=== PATIENT | female | born 1955 | race Caucasian/White ===

== ENCOUNTER 2022-03-13 09:50 | Inpatient (IN) | payer BC, MEDICARE, SELFPAY ==
[2022-03-13 09:54] VITALS: BP 123/72; PULSE 74; RESP 16; TEMP 36.3; O2SAT 97; BMI 18.6
--- NOTE | 2022-03-13 10:07 | CT_ITS ---
STUDY: CT BRAIN WITHOUT CONTRAST REASON FOR EXAM: Female, 66 years old. Confusion RADIATION DOSAGE (If Supplied By Facility): CTDIvol = ( 44.99 ) mGy, DLP = ( 745.49 ) mGycm TECHNIQUE: Transaxial CT imaging of the brain was performed without administration of intravenous contrast material. Individualized dose optimization techniques were used for this CT. COMPARISON: No relevant priors. FINDINGS: There is a right-sided ventriculoperitoneal shunt system with a right-sided fabio hole. There is also an adjacent fabio hole which appears to been abandoned.. Normal calvarium. There is moderate cerebral atrophy with widening of the extra-axial spaces and ventricular dilatation. There are areas of decreased attenuation within the white matter tracts of the supratentorial brain, consistent with microvascular disease changes. There is a focus of low attenuation within the left anterior limb of the internal capsule compatible with prior ischemic change. Normal brainstem. Normal cerebellum. There is no intracranial hemorrhage. There are no findings of an acute ischemic infarction. Normal visualized paranasal sinuses. CT/Brain/Head without Contrast IMPRESSION: Atrophy no visualized acute hemorrhage infarct or edema. Right side ventriculoperitoneal shunt tip of the third ventricle. Abandoned right frontal anteriorly located fabio hole. Electronically Signed: Anne Robledo MD at 10:42 EDT ,
[2022-03-13 10:21] LABS: Absolute Lymphocyte Count 1.95 X10^3/uL (0.83-4.51); Absolute Neutrophil Count 3.1 X10^3/uL (2.0-7.7); Basophil# 0.03 X10^3/uL; Basophil% 0.5 % (0-1); Eosinophil# 0.07 X10^3/uL; Eosinophils% 1.3 % (0-5); Hematocrit 45.4 % (37-47); Hemoglobin 15.4 g/dL (12.0-15.0); Lymphocyte # 1.95 X10^3/ul (0.83-4.51); Lymphocyte % 35.1 % (19-41); Mean Corp Hgb Conc 33.9 g/dL (32-36); Mean Corpuscular Hgb 34.1 pg (27.0-32.0); Mean Corpuscular Volume 100.4 fL (81-99); Mean Platelet Vol. 8.5 fl (6.2-12.0); Monocyte# 0.39 X10^3/uL; NRBC Flagged by Analyzer 0 % (0-5); Neutrophil # 3.11 X10^3/uL (2.7-7.7); Neutrophil % 55.9 % (47-70); Platelet Count 350 K/mm3 (150-450); RBC Distribution Width CV 11.7 % (11.6-14.6); RBC Distribution Width SD 43.4 fl (35.1-43.9); Red Blood Count 4.52 M/mm3 (4.2-5.4); White Blood Count 5.6 K/mm3 (4.4-11.0)
[2022-03-13 10:27] LABS: Mucous, Urine 0 SEEN /hpf (<or=2+); Red Blood Cells-Urine 0 SEEN /hpf (0-5)
--- NOTE | 2022-03-13 10:27 | EX.ED.DYSGE1 ---
HPI History of Present Illness Chief Complaint: Mental Health Informant: patient, EMS and police/protection consultant Narrative Narrative: Police were reportedly called this morning to go to a wellness check on patient and . Patient was found lying in bed next to her . She has dementia and reported was not able to comprehend what was going on. They believe she had gone without food or her medications for at least 1 day. She did not remember her family's phone number to contact them. [facility] Medical History Dementia History of CVA (cerebrovascular accident) HLD (hyperlipidemia) HTN (hypertension) Home Medications alendronate 70 mg PO DAILY 03/13/22 [History Last Taken Unknown] atorvastatin 40 mg PO DAILY 03/13/22 [History Last Taken Unknown] nifedipine 30 mg PO DAILY 03/13/22 [History Last Taken Unknown] nifedipine 60 mg PO DAILY 03/13/22 [History Last Taken Unknown] quetiapine 25 mg PO QHS 03/13/22 [History Last Taken Unknown] Allergy/AdvReac Type Severity Reaction Status Date / Time No Known Allergies Allergy Verified 03/13/22 09:51 Social History Smoking Status: Never smoker ROS ROS ED Constitutional Constitutional ED: Denies chills or fever(s) Eyes Eyes: Denies change in vision ENT ENT ED: Denies sore throat Cardiovascular Cardiovascular: Denies chest pain Respiratory/Chest Respiratory/Chest: Denies cough or dyspnea Gastrointestinal Gastrointestinal: Denies abdominal pain, nausea or vomiting Genitourinary Genitourinary ED: Denies dysuria Musculoskeletal Musculoskeletal: Denies back pain Integumentary Denies rash Neurologic Neurologic: Denies headache(s) Allergic/Immunologic Allergic/Immunologic ED: Denies urticaria EXAM Physical Exam Const Vital Signs: 03/13/22 09:54 Temperature 97.3 F L Temperature Source Temporal Pulse Rate 74 Respiratory Rate 16 Blood Pressure 123/72 H Blood Pressure Mean 89 Pulse Ox 97 Oxygen Delivery Method Room Air Positive well nourished and well developed General Appearance ED: well developed HEENT Reports moist mucous membranes Eyes PERRL and EOMs intact bilaterally Neck supple Chest Wall inspection of chest normal and palpation of chest normal Resp normal respiratory effort and clear to auscultation bilaterally Cardio regular rate and regular rhythm GI non-tender Palpation: soft Extremity normal to inspection Neuro no sensory deficits noted Sensorium / Orientation: alert Motor Exam: strength 5/5 throughout Skin no rashes or lesions noted MDM MDM MDM Narrative Medical decision making narrative: Lab work and urinalysis obtained along with head CT. I was able to determine that her home medications are prescribed by a nurse practitioner for [facility]. I spoke with Dr. Victor and attempts to obtain more history. Patient had a cerebral hemorrhage in left basal ganglia in November and in [place]. She had surgery there with a NUTRITION PROGRAM INSTRUCTOR shunt placed. It appears from the notes that she was back to the point of doing laundry and doing some daily activities, but was not able to cook for herself. Lab Data Attestation: I reviewed the patient's lab results. Labs: Laboratory Results - last 24 hr 03/13/22 03/13/22 03/13/22 09:58 09:58 09:58 WBC 5.6 RBC 4.52 Hgb 15.4 H Hct 45.4 MCV 100.4 H MCH 34.1 H MCHC 33.9 RDW Std Deviation 43.4 RDW Coeff of John 11.7 Plt Count 350 MPV 8.5 Immature Gran % (Auto) 0.200 Neut % (Auto) 55.9 Lymph % (Auto) 35.1 Chambers % (Auto) 7.0 Eos % (Auto) 1.3 Baso % (Auto) 0.5 Absolute Neuts (auto) 3.1 Absolute Lymphs (auto) 1.95 Nucleated RBC % 0 Sodium 139 Potassium 4.1 Chloride 105 Carbon Dioxide 29.0 Anion Gap 5 BUN 10 Creatinine 0.84 Estim Creat Clear Calc 56.71 Est GFR (MDRD) Af Amer 88 Est GFR (MDRD) Non-Af 72 BUN/Creatinine Ratio 11.9 Glucose 109 H Calcium 9.6 Urine Color Urine Clarity Urine pH Ur Specific [place] Urine Protein Urine Glucose (UA) Urine Ketones Urine Occult Blood Urine Nitrite Urine Bilirubin Urine Urobilinogen Ur Leukocyte Esterase Urine RBC Urine WBC Ur Squamous Epith Cells Urine Bacteria Urine Mucus Urine Opiates Screen Urine Methadone Screen Ur Barbiturates Screen Ur Phencyclidine Scrn Ur Amphetamines Screen MDMA (Ecstasy) Screen U Benzodiazepines Scrn Urine Cocaine Screen U Cannabinoids Screen Ur Drug Screen Comment Ethyl Alcohol < 3.0 03/13/22 03/13/22 10:24 10:24 WBC RBC Hgb Hct MCV MCH MCHC RDW Std Deviation RDW Coeff of John Plt Count MPV Immature Gran % (Auto) Neut % (Auto) Lymph % (Auto) Chambers % (Auto) Eos % (Auto) Baso % (Auto) Absolute Neuts (auto) Absolute Lymphs (auto) Nucleated RBC % Sodium Potassium Chloride Carbon Dioxide Anion Gap BUN Creatinine Estim Creat Clear Calc Est GFR (MDRD) Af Amer Est GFR (MDRD) Non-Af BUN/Creatinine Ratio Glucose Calcium Urine Color Yellow Urine Clarity Cloudy Urine pH 6.0 Ur Specific [place] 1.020 Urine Protein 30 H Urine Glucose (UA) Normal Urine Ketones 5 H Urine Occult Blood 50 H Urine Nitrite Positive H Urine Bilirubin Negative Urine Urobilinogen 1 H Ur Leukocyte Esterase 500 H Urine RBC 0 SEEN Urine WBC 5-10 SEEN Ur Squamous Epith Cells 5-10 SEEN Urine Bacteria 3+ Urine Mucus 0 SEEN Urine Opiates Screen NEGATIVE Urine Methadone Screen NEGATIVE Ur Barbiturates Screen NEGATIVE Ur Phencyclidine Scrn NEGATIVE Ur Amphetamines Screen NEGATIVE MDMA (Ecstasy) Screen NEGATIVE U Benzodiazepines Scrn NEGATIVE Urine Cocaine Screen NEGATIVE U Cannabinoids Screen NEGATIVE Ur Drug Screen Comment Ethyl Alcohol Radiography Diagnostic Testing: Clinical Impression(s) from Imaging Studies Brain CT 03/13/22 10:07 IMPRESSION: Atrophy no visualized acute hemorrhage infarct or edema. Right side ventriculoperitoneal shunt tip of the third ventricle. Abandoned right frontal anteriorly located fabio hole. Electronically Signed: Anne Robledo MD at 10:42 EDT , Treatment and Re-Evaluation Narrative: Laboratory evaluation is unremarkable. Urinalysis does reveal positive nitrites with 3+ bacteria, however 5-10 epithelial cells are noted. Urine is sent for culture and she is given a dose of Keflex here. Head CT reveals chronic changes with her NUTRITION PROGRAM INSTRUCTOR shunt in place. I spoke with a close family friend who is bringing the patient's person medications to the ER. They state that the patient's children are on their way here from out of state will not be here until tomorrow. She clearly is not able to care for herself and will need placement. I will speak with the hospitalist. Discharge Plan Triage Chief Complaint: Mental Health ED Provider: Patricia Morris Dx/Rx/DC Orders Clinical Impression: Dementia Prescriptions: No Action nifedipine 30 mg tablet extended release 24hr 30 mg PO DAILY RF: 0 quetiapine 25 mg tablet 25 mg PO QHS RF: 0 atorvastatin 40 mg tablet 40 mg PO DAILY RF: 0 alendronate 70 mg tablet 70 mg PO DAILY RF: 0 nifedipine 60 mg tablet extended release 60 mg PO DAILY RF: 0 Primary Care Provider: Lydia Key Referrals: Lydia Key MD [Primary Care Provider] - Disposition Disposition: Acute Care Hospital [facility]
[2022-03-13 10:28] LABS: Color, Urine Yellow (Yellow); Glucose, Dipstick Normal (Normal); Ketone-Dipstick 5 mg/dl (Negative); Leukocyte Esterase-Dipstick 500 /ul (Negative); Nitrite-Dipstick Positive (Negative); Occult Blood-Urine 50 /ul (Negative); Protein-Dipstick 30 mg/dl (Negative); Urine Bilirubin Dipstick Negative (Negative); Urine Clarity Cloudy (Clear); Urine Urobilinogen 1 mg/dl (Normal)
[2022-03-13 10:34] LABS: Bacteria 3+ /hpf (None Seen); Squamous Epithelial Cells - UA 5-10 SEEN /hpf (5-10); White Blood Cells 5-10 SEEN /hpf (0-5)
[2022-03-13 10:46] LABS: Anion Gap 5 (5-15); BUN 10 mg/dL (7-18); BUN/Creat Ratio 11.9 RATIO (10-20); Calcium,Total 9.6 mg/dL (8.5-10.1); Chloride 105 mmol/L (98-107); Creatinine, Serum 0.84 mg/dL (0.55-1.02); EST Glomerular Filtration Rate 72 mL/min (>60); Est Glom Filt Rate - Afr Amer 88 mL/min (>60); Estimated Creatinine Clearance 56.71 ml/min; Glucose 109 mg/dL (74-106); Potassium 4.1 mmol/L (3.5-5.1); Sodium Level 139 mmol/L (136-145)
[2022-03-13 10:51] VITALS: RESP 16
[2022-03-13] MEDS: Cephalexin 250 MG Capsule 500 MG PO (10:55)
[2022-03-13 10:57] LABS: Amphetamine Urine VISTA NEGATIVE (<1000 ng/mL); Barbiturate Urine VISTA NEGATIVE (< 200 ng/mL); Benzodiazepine Urine VISTA NEGATIVE (< 200 ng/mL); Cocaine Urine VISTA NEGATIVE (< 300 ng/mL); Ecstacy Urine VISTA NEGATIVE (< 500 ng/mL); Methadone Urine VISTA NEGATIVE (< 300 ng/mL); PCP Urine VISTA NEGATIVE (< 25 ng/mL); THC Urine VISTA NEGATIVE (< 50 ng/mL); Vista UDS pH Range 6
[2022-03-13 11:06] LABS: Alcohol, Blood (Medical)-Serum < 3.0 mg/dL
--- NOTE | 2022-03-13 11:45 | HP.PCM.HOS_ITS ---
HPI - General General Date of Admission: 03/13/22 Date of Service: 03/13/22 Chief Complaint: Altered mental status HPI Narrative NIEVES BLISS, is a 66 F with underlying history of dementia who was found sleeping next to her bed had spent following a wellness check. Patient had apparently been did approximately for 72 hours. Patient was not aware that the was . She was brought to the emergency room subsequently. Work-up did reveal presence of acute cystitis. Started on antibiotics admitted to regular nursing floor with consultation placed to case management [facility] Medical History Dementia History of CVA (cerebrovascular accident) HLD (hyperlipidemia) HTN (hypertension) Home Medications alendronate 70 mg PO DAILY 03/13/22 [History Last Taken Unknown] atorvastatin 40 mg PO DAILY 03/13/22 [History Last Taken Unknown] nifedipine 30 mg PO DAILY 03/13/22 [History Last Taken Unknown] nifedipine 60 mg PO DAILY 03/13/22 [History Last Taken Unknown] quetiapine 25 mg PO QHS 03/13/22 [History Last Taken Unknown] Allergy/AdvReac Type Severity Reaction Status Date / Time No Known Allergies Allergy Verified 03/13/22 09:51 Family History unable to obtain unable to obtain (Advanced dementia) Social History Smoking Status: Never smoker ROS Review of Systems ROS Unobtainable: due to mental condition Vital Signs Vital Signs Vital Signs: 03/13/22 09:54 Temperature 97.3 F L Temperature Source Temporal Pulse Rate 74 Respiratory Rate 16 Blood Pressure 123/72 H Blood Pressure Mean 89 Pulse Ox 97 Oxygen Delivery Method Room Air Weight Weight: 53.8 kg Body Mass Index (BMI) 18.6 Physical Exam Narrative GENERAL: Patient in no apparent distress HEENT: Atraumatic; EYES; Anicteric, Normal Conjunctiva NECK; supple, normal thyroid, RESPIRATORY: Diminished to auscultation CARDIOVASCULAR: Regular S1 S2, GI: soft, normoactive bowel sounds, : No Renal angle tenderness; EXTREMITIES: No edema, no clubbing, MUSCULOSKELETAL: no muscle wasting NEURO: Awake; no lateralizing signs. SKIN: No Rash PSYCH; Flat affect Results Lab / Micro Data Result Diagrams: 03/13/22 09:58 03/13/22 09:58 Labs: Laboratory Results - last 24 hr 03/13/22 09:58: WBC 5.6, RBC 4.52, Hgb 15.4 H, Hct 45.4, MCV 100.4 H, MCH 34.1 H , MCHC 33.9, RDW Std Deviation 43.4, RDW Coeff of John 11.7, Plt Count 350, MPV 8.5, Immature Gran % (Auto) 0.200, Neut % (Auto) 55.9, Lymph % (Auto) 35.1, Bates % (Auto) 7.0, Eos % (Auto) 1.3, Baso % (Auto) 0.5, Absolute Neuts (auto) 3.1, Absolute Lymphs (auto) 1.95, Nucleated RBC % 0 03/13/22 09:58: Sodium 139, Potassium 4.1, Chloride 105, Carbon Dioxide 29.0, Anion Gap 5, BUN 10, Creatinine 0.84, Estim Creat Clear Calc 56.71, Est GFR (MDRD) Af Amer 88, Est GFR (MDRD) Non-Af 72, BUN/Creatinine Ratio 11.9, Glucose 109 H, Calcium 9.6 03/13/22 09:58: Ethyl Alcohol < 3.0 03/13/22 10:24: Urine Color Yellow, Urine Clarity Cloudy, Urine pH 6.0, Ur Specific [place] 1.020, Urine Protein 30 H, Urine Glucose (UA) Normal, Urine Ketones 5 H, Urine Occult Blood 50 H, Urine Nitrite Positive H, Urine Bilirubin Negative, Urine Urobilinogen 1 H, Ur Leukocyte Esterase 500 H, Urine RBC 0 SEEN, Urine WBC 5-10 SEEN, Ur Squamous Epith Cells 5-10 SEEN, Urine Bacteria 3+, Urine Mucus 0 SEEN 03/13/22 10:24: Urine Opiates Screen NEGATIVE, Urine Methadone Screen NEGATIVE, Ur Barbiturates Screen NEGATIVE, Ur Phencyclidine Scrn NEGATIVE, Ur Amphetamines Screen NEGATIVE, MDMA (Ecstasy) Screen NEGATIVE, U Benzodiazepines Scrn NEGATIVE, Urine Cocaine Screen NEGATIVE, U Cannabinoids Screen NEGATIVE, Ur Drug Screen Comment Radiology Impression Brain CT 03/13/22 10:07 IMPRESSION: Atrophy no visualized acute hemorrhage infarct or edema. Right side ventriculoperitoneal shunt tip of the third ventricle. Abandoned right frontal anteriorly located fabio hole. Electronically Signed: Anne Robledo MD at 10:42 EDT , Assessment & Plan Assessment/Plan (1) Acute cystitis: PLAN: Patient is a 66-year-old lady with advanced dementia found laying next to her bed has 1 after wellness check brought to the ED. Work-up consistent with UTI 1. Acute cystitis ? Patient has been started on Rocephin cultures sent plan is adjust antibiotic therapy based on culture result 2. Advanced dementia ? Patient will probably need to be placed in a facility. Patient has no immediate family. History was partly provided by her neighbors and apparently she has kids who currently out of town and traveling back to [place]. Consult has also been placed to case management to assist with disposition 3. History of hemorrhagic CVA ? Currently stable 4. Dyslipidemia -Patient is on statin therapy, continued at home dose 5. Hypertension - Blood pressure controlled, home medications continued with dose adjustment as needed 6. Osteoporosis ? Patient apparently on alendronate 7. DVT prophylaxis ? Lovenox CODE STATUS full code unverified at this point Charges/Coding Visit Charges Inpatient E&M: 38329 Init Hosp L2
[2022-03-13 11:47] VITALS: BP 101/70; PULSE 64; RESP 14; TEMP 36.8; O2SAT 98
[2022-03-13 12:46] VITALS: BP 122/78; PULSE 62; RESP 18; TEMP 36.7; O2SAT 100; BMI 17.7
[2022-03-13] MEDS: Ceftriaxone 1 GM/50 ML BAG IV (14:00)
[2022-03-13 15:25] VITALS: O2SAT 100
[2022-03-13 19:36] VITALS: BP 94/65; PULSE 69; RESP 16; TEMP 36.6; O2SAT 95
[2022-03-13] MEDS: QUEtiapine 25 MG Tablet PO (22:06)
[2022-03-13] MEDS: Atorvastatin Calcium 40 MG Tablet PO (22:06)
[2022-03-14 01:00] VITALS: BP 101/70; PULSE 66; RESP 14; TEMP 36.6; O2SAT 97
[2022-03-14 06:10] LABS: Absolute Lymphocyte Count 2.16 X10^3/uL (0.83-4.51); Absolute Neutrophil Count 2.7 X10^3/uL (2.0-7.7); Basophil# 0.05 X10^3/uL; Basophil% 0.9 % (0-1); Eosinophil# 0.13 X10^3/uL; Eosinophils% 2.4 % (0-5); Hematocrit 41.9 % (37-47); Lymphocyte # 2.16 X10^3/ul (0.83-4.51); Lymphocyte % 39.1 % (19-41); Mean Corp Hgb Conc 33.4 g/dL (32-36); Mean Corpuscular Hgb 33.8 pg (27.0-32.0); Mean Corpuscular Volume 101.2 fL (81-99); Mean Platelet Vol. 8.7 fl (6.2-12.0); Monocyte# 0.49 X10^3/uL; Monocyte% 8.9 % (0-10); NRBC Flagged by Analyzer 0 % (0-5); Neutrophil # 2.68 X10^3/uL (2.7-7.7); Neutrophil % 48.5 % (47-70); Platelet Count 318 K/mm3 (150-450); RBC Distribution Width CV 11.9 % (11.6-14.6); RBC Distribution Width SD 44.2 fl (35.1-43.9); Red Blood Count 4.14 M/mm3 (4.2-5.4); White Blood Count 5.5 K/mm3 (4.4-11.0)
[2022-03-14 06:33] LABS: Anion Gap 5 (5-15); BUN 16 mg/dL (7-18); BUN/Creat Ratio 24.5 RATIO (10-20); Calcium,Total 9.3 mg/dL (8.5-10.1); Chloride 110 mmol/L (98-107); Creatinine, Serum 0.65 mg/dL (0.55-1.02); EST Glomerular Filtration Rate 96 mL/min (>60); Est Glom Filt Rate - Afr Amer 117 mL/min (>60); Estimated Creatinine Clearance 70.05 ml/min; Glucose 92 mg/dL (74-106); Potassium 4.2 mmol/L (3.5-5.1); Sodium Level 142 mmol/L (136-145)
[2022-03-14 07:55] VITALS: BP 99/74; PULSE 66; RESP 16; TEMP 36.9; O2SAT 98
[2022-03-14 09:50] VITALS: BP 95/66
[2022-03-14] MEDS: Ceftriaxone 1 GM/50 ML BAG IV (09:59)
--- NOTE | 2022-03-14 11:08 | DCINST_ITS ---
Discharge Instructions Diet Discharge Diet: Low fat / Low cholesterol Activity Discharge Activity: Return to Normal Activity Dressing / Incision Call your doctor if you observe: Fever of 101 or Higher, Shortness of breath, Dizziness, Fainting spells, Swelling in the ankles, Chest pain and Increased palpitations (irregular heartbeat) Follow Up Care Test Results: Test results from this visit will be discussed in further detail at your follow-up appointment, if applicable. Discharge Plan Admission Admit Date/Time: 03/13/22 11:25 Attending Provider: Alejandro Butler Primary Care Provider: Jazzy Kapoor NP Consulting Providers: Alfredito Car Discharge Orders/Prescriptions Prescriptions: New cefdinir 300 mg capsule 300 mg PO Q12H Qty: 10 RF: 0 Continued nifedipine 30 mg tablet extended release 24hr 30 mg PO DAILY RF: 0 quetiapine 25 mg tablet 25 mg PO QHS RF: 0 atorvastatin 40 mg tablet 40 mg PO DAILY RF: 0 alendronate 70 mg tablet 70 mg PO DAILY RF: 0 nifedipine 60 mg tablet extended release 60 mg PO DAILY RF: 0 Referrals / Follow Up: Lydia Key MD [STAFF PHYSICIAN] - Within 1 Week Jazzy Kapoor NP, [employer] [Primary Care Provider] - Disposition Disposition (needs filled in before D/C Order can be placed): Home, Self Care
--- NOTE | 2022-03-14 12:10 | CASEMGMT ---
RN ERICA OILER BANDER CM to room to meet with patient and pt's son and dtr, who are at bedside, for initial transition planning/care coordination assessment. MICHAEL MALDONADO introduced self and role at [facility]. Pt resting in bed in no distress at this time. Pt w/recent hx of aneurysm/stroke and shunt placement (12/28) and impaired cognitive status since. The following information obtained from dtrVaishali, and sonRoberto. Care providers, pharmacy, and demographics verified/updated at this time. PCP: SHARDA Shirley Specialists: Pt goes to cognitive therapy in [place]. Son and dtr are not aware of any other specialists at this time. Preferred Pharmacy: [facility]. Script for atb has been sent to [facility] in [place]. Call placed to [facility] to have script transferred to [facility] per their request. Insurance: [employer] Green only Prescription Benefit: Yes Living Will/HPOA: Pt had as HPOA, who has recently passed. Dtr and son state they plan to meet w/vice president financial to look into further paperwork. LNOK: Vaishali Mantilla--lives in [facility]. Roberto Palacios-lives in [facility]. Living Arrangements: Pt was living w/, until he recently passed a few days ago. Pt lives in a 2-story home. Bedroom is on 2nd floor and she is able to navigate stairs well. had been taking care of pt and monitoring her closely since the brain aneurysm in December. There is a camera system and door alarms, as pt is at risk for wandering. Son, Roberto, plans to stay w/pt for next couple weeks to months, as needed, until they can develop a more long-term plan. They want to look into finding 24-hr care for pt in the home. They are not sure where pt will be re-located to, as most of her family live [id number]. They have a lot of family that are supportive and have offered to help. Son provided w/list of local agencies that have in-home aides. Questions answered. They voice appreciation. Transportation: Family DME: Son and dtr state they are not aware of pt using any DME, although there is a lot available at pt's home, if needed. They deny having any DME needs at this time. HHC/SNF: No hx of either. Son and dtr voice no further concerns/needs at this time. Advised them to ask for CM if any further questions/concerns/needs arise. They voice understanding. PLAN: Home w/family support and discharge plans in place. Maynor NESSN RN CM
--- NOTE | 2022-03-14 12:33 | CASEMGMT ---
Social Work Note DAVI updated that pt's recently passed. Pt was found laying next to her . Per Emergency Dept Summary Patient was found lying in bed next to her . She has dementia and reported was not able to comprehend what was going on. They believe she had gone without food or her medications for at least 1 day. She did not remember her family's phone number to contact them. SW in to speak with pt. Pt standing beside bed, pt's children present in room. SW introduced self and role at [facility]. SW provided pt and pt's family with bereavement resources. SW also asked pt about ETOH use as it was charted that pt has hx of ETOH use. Pt states she drinks once every three days. Pt's children states she drinks Chardonnay. Pt's children state that pt's was really trying to stop pt from drinking ETOH and that they had not heard anything lately about pt drinking so they state that is a good thing. SW offered ETOH use resources and both pt and pt's children denied. Pt's children state if they need it, they know the resources. Pt and pt's children denied additional needs or concerns at this time. DAVI did call Chance with APS due to the report that pt was laying next to her , pt was not able to comprehend, and pt was left without food or medication for at least a day. Silva Harden TRACTOR TRAILER DRIVER, SILK CREPE MACHINE OPERATOR
[2022-03-14 12:49] VITALS: O2SAT 92
--- NOTE | 2022-03-14 12:55 | DS.PCM_ITS ---
Providers Date of Admission: 03/13/22 Primary Care Physician: Jazzy Kapoor, [employer]-C Reason For Visit: ACUTE ENCEPHALOPATHY, ACUTE CYSTITIS Diagnosis Discharge Diagnosis (1) Acute cystitis: Status: Acute Code(s): N30.00 - Acute cystitis without hematuria Medications at Discharge Home Medications alendronate 70 mg PO DAILY 03/13/22 atorvastatin 40 mg PO DAILY 03/13/22 nifedipine 30 mg PO DAILY 03/13/22 nifedipine 60 mg PO DAILY 03/13/22 quetiapine 25 mg PO QHS 03/13/22 cefdinir 300 mg PO Q12H #10 cap 03/14/22 Hospital Course Operations None Procedures None Summary of Care Provided Minutes Spent on Discharge: 40 Hospital Course: Per HPI: NIEVES BLISS, is a 66 F with underlying history of dementia who was found sleeping next to her following a wellness check. Patient had apparently been approximately for 72 hours. Patient was not aware that the was . She was brought to the emergency room subsequently. Work-up did reveal presence of acute cystitis. Started on antibiotics admitted to regular nursing floor with consultation placed to case management Hospital course: 1. Dementia/history of hemorrhagic stroke/acute cystitis?66-year-old female with a history of dementia who about 3 months ago had a hemorrhagic stroke at an outside hospital. Since then family had noticed a significant decline in functional status and her started taking care of her. About 2 weeks ago family noticed that the was not feeling very well but he refused to go to the hospital. Yesterday for family and friends requested a wellness check by police because no one was able to get a hold of the for several days and when they arrived to the house they had found her to be . She was confused and did not seem to understand this therefore she was brought to the hospital by police. In the ER she was found to have a UTI. Family is here and wanting to take her home, she does not have any other issues besides the UTI which is being treated with antibiotics, cultures came back preliminarily with gram-negative rishi we will continue with cefdinir on discharge but will monitor cultures and change antibiotics post discharge if sensitivities require. They are working on placement issues, they did not want to send her to a [facility] or an assisted living because they state that she had some functional decline after her stroke while there and that currently there are options to either go to [place] with her daughter and a live-in nurse or to [place] where there are aunts and siblings that can take care of her, she did improve faster than expected. I discussed extensively with the family discharge planning as well as advanced care planning in terms of palliative care placement potentially depending on where she lands, this conversation took approximately 20 minutes. I discussed with him the possibility for discharge today he expressed understanding of the risk benefits of going home and they would like to take her home today. Physical Exam Const alert and no apparent distress General Appearance: cooperative Orientation / Consciousness: confused HEENT normocephalic and moist oral mucous membranes Eyes PERRL, EOMs intact bilaterally and conjunctivae normal Neck supple and no JVD Resp normal respiratory effort, no retractions, no use of accessory muscles and clear to auscultation bilaterally Auscultation: Negative for crackles, rales, rhonchi or wheezes Cardio regular rate, regular rhythm, S1 normal heart sound, S2 normal heart sound and no murmurs GI soft to palpation, non-tender and non-distended; Negative for hepatosplenomegaly Extremity no clubbing, cyanosis or edema Skin no rashes or lesions noted Neuro no focal motor deficits and no sensory deficits noted Psych affect normal Appearance: appropriate Weight / BMI Weight Weight: 113 lb 6 oz Body Mass Index (BMI) 17.7 ABG / Lab / Microbiology Data Result Diagrams: 03/14/22 05:15 03/14/22 05:15 Laboratory: Laboratory Results - last 24 hr 03/14/22 05:15: WBC 5.5, RBC 4.14 L, Hgb 14.0, Hct 41.9, MCV 101.2 H, MCH 33.8 H , MCHC 33.4, RDW Std Deviation 44.2 H, RDW Coeff of John 11.9, Plt Count 318, MPV 8.7, Immature Gran % (Auto) 0.200, Neut % (Auto) 48.5, Lymph % (Auto) 39.1, [place] % (Auto) 8.9, Eos % (Auto) 2.4, Baso % (Auto) 0.9, Absolute Neuts (auto) 2.7, Absolute Lymphs (auto) 2.16, Nucleated RBC % 0 03/14/22 05:15: Sodium 142, Potassium 4.2, Chloride 110 H, Carbon Dioxide 27.0, Anion Gap 5, BUN 16, Creatinine 0.65, Estim Creat Clear Calc 70.05, Est GFR (MDRD) Af Amer 117, Est GFR (MDRD) Non-Af 96, BUN/Creatinine Ratio 24.5 H, Glucose 92, Calcium 9.3 Microbiology: Microbiology 03/13/22 10:24 Urine, Clean Catch Urine 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 Discharge Diet: Low fat / Low cholesterol Call your doctor if you observe: Fever of 101 or Higher, Shortness of breath, Dizziness, Fainting spells, Swelling in the ankles, Chest pain and Increased palpitations (irregular heartbeat) Meaningful Use Info Meaningful Use Diagnoses (Choose all that apply): None applicable Discharge Plan Admission Admit Date/Time: 03/13/22 11:25 Attending Provider: Alejandro Butler Primary Care Provider: Jazzy Kapoor NP Consulting Providers: Alfredito Car Discharge Orders/Prescriptions Prescriptions: New cefdinir 300 mg capsule 300 mg PO Q12H Qty: 10 RF: 0 Continued nifedipine 30 mg tablet extended release 24hr 30 mg PO DAILY RF: 0 quetiapine 25 mg tablet 25 mg PO QHS RF: 0 atorvastatin 40 mg tablet 40 mg PO DAILY RF: 0 alendronate 70 mg tablet 70 mg PO DAILY RF: 0 nifedipine 60 mg tablet extended release 60 mg PO DAILY RF: 0 Referrals / Follow Up: Lydia Key MD [STAFF PHYSICIAN] - Within 1 Week Jazzy Kapoor NP, SHARDA-C [Primary Care Provider] - Disposition Disposition (needs filled in before D/C Order can be placed): Home, Self Care Charges/Coding Visit Charges Inpatient E&M: 72336 Disch Hosp Procedures Hospitalists Procedures: 60589 Advncd Care Plan 30 Min
--- NOTE | 2022-03-14 14:45 | PHA.DC.MR ---
Pharmacy Service has performed discharge medication reconciliation for this patient. The patient's discharge medication list was reviewed for discrepancies and discrepancies were resolved. Was unable to eap counselor before discharge. Medications reviewed. Home Medications alendronate 70 mg PO DAILY 03/13/22 atorvastatin 40 mg PO DAILY 03/13/22 nifedipine 30 mg PO DAILY 03/13/22 nifedipine 60 mg PO DAILY 03/13/22 quetiapine 25 mg PO QHS 03/13/22 cefdinir 300 mg PO Q12H #10 cap 03/14/22
== END 2022-03-14 12:20 | disposition home or self-care (01) | DRG 690 ==
LOC: ED 11:23 → MS3 11:33
PROVIDERS: Admitting Provider Internal Medicine; Emergency Provider Emergency Medicine; PCP Nurse Practitioner Primary Care; Visit Provider Family Medicine
DX: N30.00 Acute cystitis without hematuria (principal); E78.5 Hyperlipidemia, unspecified; F03.90 Unspecified dementia, unspecified severity, without behavioral disturbance, psychotic disturbance, mood disturbance, and anxiety; I10 Essential (primary) hypertension; M81.0 Age-related osteoporosis without current pathological fracture; Z98.2 Presence of cerebrospinal fluid drainage device; Z79.83 Long term (current) use of bisphosphonates; Z79.899 Other long term (current) drug therapy; Z86.73 Personal history of transient ischemic attack (TIA), and cerebral infarction without residual deficits
CPT/HCPCS: 36415; 70450; 80048; 80307; 81001; 82077; 85025; 87077; 87086; 87088; 87186; 99251; 99285; G0463